=== PATIENT | female | born 1960 | race Caucasian/White ===

== ENCOUNTER 2017-11-16 18:08 | Inpatient (IN) | payer OTHER ==
[~2017-11-16] VITALS: Ht 162.6 cm; Wt 116.6 kg
[2017-11-16] MEDS ORDERED: ENALAPRIL (18:17)
[2017-11-16] MEDS ORDERED: NEURONTIN PO (18:17)
--- NOTE | 2017-11-16 18:57 | NUR ---
Patient went to the bathroom
--- NOTE | 2017-11-16 19:00 | NUR ---
at bedside for MSE.
--- NOTE | 2017-11-16 19:05 | NUR ---
Passed report to [facility] NICOLA Solis. I relinquish care of my patient.
--- NOTE | 2017-11-16 19:07 | NUR ---
Report taken from day shift RN. Assuming PT care at this time
[2017-11-16] MEDS ORDERED: ALBUTEROL SULFATE 2.5 MG/3 ML NEBU NEB ONE (19:15)
[2017-11-16] MEDS ORDERED: ALBUTEROL SULFATE 2.5 MG/3 ML NEBU ONE (19:26)
[2017-11-16] MEDS ORDERED: methylPREDNISolone SOD SUCC 125 MG/2 ML VIAL IV ONE (19:30)
--- NOTE | 2017-11-16 19:40 | NUR ---
at bedside for MSE.
[2017-11-16] MEDS ORDERED: methylPREDNISolone SOD SUCC 125 MG/2 ML VIAL ONE (19:55)
--- NOTE | 2017-11-16 20:00 | NUR ---
RT at bedside for breathing treatment.
[2017-11-16 20:04] LABS: CREATININE 0.8 mg/dL (0.6-1.3); POTASSIUM 4.1 mmol/L (3.5-5.1)
[2017-11-16 20:11] LABS: BASOPHILS # (AUTO) 0.1 K/uL (0.0-8.0); BASOPHILS % (AUTO) 0.8 % (0.0-2.0); EOSINOPHILS # (AUTO) 0.6 K/uL (0.0-0.7); EOSINOPHILS % (AUTO) 5.5 % (0.0-7.0); HEMOGLOBIN 14.1 g/dL (10.9-14.3); LYMPHOCYTES # (AUTO) 2.1 K/uL (20.0-40.0); LYMPHOCYTES % (AUTO) 18.6 % (20.5-51.5); MEAN CORPUSCULAR HEMOGLOBIN 29.4 uug (24.7-32.8); MEAN CORPUSCULAR HGB CONC 33 g/dL (32.3-35.6); MEAN CORPUSCULAR VOLUME 89.8 fL (75.5-95.3); MONOCYTES # (AUTO) 0.8 K/uL (2.0-10.0); MONOCYTES % (AUTO) 7.2 % (0.0-11.0); NEUTROPHILS # (AUTO) 7.5 K/uL (1.8-8.9); NEUTROPHILS % (AUTO) 67.9 % (38.5-71.5); PLATELET COUNT (AUTO) 341 K/uL (179-408); RED BLOOD CELL COUNT(AUTO) 4.79 MIL/uL (3.63-4.92); WHITE BLOOD COUNT (AUTO) 11.1 K/uL (3.8-11.8)
[2017-11-16 20:16] LABS: BILIRUBIN,DIRECT 0.1 mg/dL (0.0-0.2); BILIRUBIN,TOTAL 0.6 mg/dL (0.2-1.0); TOTAL PROTEIN, SERUM 7.1 g/dL (6.4-8.2)
[2017-11-16] MEDS ORDERED: METOPROLOL TARTRATE 5 MG/5 ML VIAL IVP ONE ×6 (20:30→22:11)
[2017-11-16] MEDS ORDERED: ASPIRIN 325 MG TABLET PO ONE (20:30)
[2017-11-16] MEDS ORDERED: ASPIRIN 325 MG TABLET ONE (21:14)
[2017-11-16] MEDS ORDERED: PANTOPRAZOLE SODIUM IV 40 MG in IV DEXTROSE 5% 100 ML IV ONE (21:15)
[2017-11-16] MEDS ORDERED: PANTOPRAZOLE SODIUM 40 MG VIAL ONE (21:46)
--- NOTE | 2017-11-16 23:00 | NUR ---
Pt resting in a position of comfort. No distress noted at this time.
[2017-11-16 23:15] VITALS: BP 155/96
--- NOTE | 2017-11-16 23:15 | NUR ---
NURSING CLINICAL NOTE: Received pt from ED with a Dx of SOB. Hx of Asthma and HTN. connected to the registered nurse hh case manager shows Sinus tachycardia. MD. Gonsales is aware. pt is A&O X 4. on 3 L NC sating well. denies pain or distress at this time. Fall precautions are implemented as indicated. Will continue to monitor for any changes on the patient condition.
[2017-11-16] MEDS ORDERED: IV NORMAL SALINE 250 ML IV ONE (23:37)
[2017-11-16] MEDS ORDERED: NORMAL SALINE FLUSH 10 ML DISP.SYRIN ONE (23:37)
[2017-11-16] MEDS ORDERED: IOHEXOL 350 100 ML INFUS..BTL ONE (23:37)
[2017-11-17] VITALS: BP 155/96
[2017-11-17] MEDS ORDERED: LEVALBUTEROL HCL NEB 0.63 MG/3 ML NEBU NEB PRN
[2017-11-17] MEDS ORDERED: ONDANSETRON 4 MG/2 ML VIAL IV PRN
[2017-11-17] MEDS ORDERED: MORPHINE SULFATE 2 MG/1 ML DISP.SYRIN IV PRN
[2017-11-17] MEDS ORDERED: IPRATROPIUM BROMIDE 0.5 MG/2.5 ML NEBU NEB PRN
[2017-11-17] MEDS ORDERED: LEVOFLOXACIN 750MG/D5W 750 MG in PREMIXED 1 EACH IV SCH ×2
--- NOTE | 2017-11-17 | NUR ---
Pt. admitted to tele, under care of Dr. Choi Belongs List completed
[2017-11-17] MEDS ORDERED: FUROSEMIDE 20 MG/2 ML VIAL ONE (00:30)
[2017-11-17] MEDS ORDERED: LEVOFLOXACIN 750MG/D5W 150 ML IV ONE (00:30)
[2017-11-17] MEDS ORDERED: DILTIAZEM HCL 60 MG TABLET ONE ×2 (00:31→06:17)
[2017-11-17] MEDS: DILTIAZEM HCL 60 MG TABLET PO SCH ×4 (00:44→21:51)
[2017-11-17] MEDS: FUROSEMIDE 20 MG/2 ML VIAL IV SCH ×3 (00:44→21:50)
--- NOTE | 2017-11-17 02:19 | NUR ---
NURSING CLINICAL NOTE: Pt is tachycardic on the monitor, still sustained HR of 141 b/min. pt is asymptomatic, denies pain or acute distress. Ethel is paged, will cont to monitor.
--- NOTE | 2017-11-17 02:55 | NUR ---
NURSING CLINICAL NOTE: Ethel made aware of the patient's condition and ordered Stat EKG. will carry out the orders and cont to monitor patient's condition.
[2017-11-17] MEDS ORDERED: MORPHINE SULFATE 2 MG/1 ML DISP.SYRIN ONE (03:06)
[2017-11-17 04:00] VITALS: BP 136/65
[2017-11-17] MEDS ORDERED: DILTIAZEM HCL 25 MG IV IV ONE ×2 (04:00→10:15)
[2017-11-17] MEDS ORDERED: DILTIAZEM HCL 25 MG IV ONE (04:09)
--- NOTE | 2017-11-17 04:11 | NUR ---
NURSING CLINICAL NOTE: Ethel ordered 10 mg cardizem IVP. order is performed. will cont to monitor.
--- NOTE | 2017-11-17 05:20 | NUR ---
NURSING CLINICAL NOTE: Pt still having a HR above 140's, pt is asymptomatic BP: 136/65 mmHg. No distress noted. Ethel is paged again. will continue to monitor.
[2017-11-17 06:06] LABS: ABG HCO3 32.9 mmol/L; ABG PCO2 51.7 mmHg (35.0-45.0); ABG PH 7.422 (7.350-7.450); ABG PO2 85.4 mmHg (75.0-100.0); ABG SITE RIGHT BRACHIAL; ABG TOTAL HEMOGLOBIN 14.1 G/dL (12.0-16.0); COHb 1.4 % (0.5-1.5); MetHb 0.3 % (0.0-1.5); VENT MODE Nasal Cannula
[2017-11-17] MEDS: methylPREDNISolone SOD SUCC 125 MG/2 ML VIAL IV SCH ×3 (06:13→21:49)
[2017-11-17] MEDS ORDERED: methylPREDNISolone SOD SUCC 125 MG/2 ML VIAL ONE (06:18)
[2017-11-17] MEDS ORDERED: DIGOXIN 500 MCG/2 ML AMP IV ONE ×2 (06:30→06:45)
[2017-11-17] MEDS ORDERED: DIGOXIN 500 MCG/2 ML AMP ONE (06:38)
--- NOTE | 2017-11-17 06:54 | NUR ---
NURSING CLINICAL NOTE: Ethel ordered 250 mcg of digoxin IVP. order is performed. will cont to monitor and endorse patient and POC to the next nurse to continue the care. Charge nurse made aware of patient's condition.
--- NOTE | 2017-11-17 08:00 | NUR ---
awake alert and oriented, denies of chest pain, has occasional cough non productive, on 3l/nc. tele ST 140, asymptomatic, states doesn't feel her heart rate is up, expalined plan of care- verbalized understanding, call light within reach
[2017-11-17] MEDS ORDERED: FLUTICASONE/SALMETEROL 250/50 INHALER INH SCH (09:00)
[2017-11-17] MEDS ORDERED: ASPIRIN EC 325 MG TABLET.DR PO SCH (09:00)
[2017-11-17] MEDS: PANTOPRAZOLE SODIUM 40 MG TABLET.DR PO SCH (09:05)
[2017-11-17] MEDS: FLUTICASONE/VILANTEROL 1 EACH BLST.W.DEV INH SCH (09:06)
--- NOTE | 2017-11-17 09:50 | NUR ---
rhythm a flutter 2:1 at 140's, ordered stat EKG and showed atrial flutter- BP- 123/72 Dr Choi informed, ordered to call veneer stacker, called Dr Del Rio and orders given to give bolus of Cardizem 10mg iv followed by Cardizem drip at 5mg/hr
[2017-11-17 10:38] LABS: EOSINOPHILS % (AUTO) 0.1 % (0.0-7.0); HEMATOCRIT 45.2 % (31.2-41.9); HEMOGLOBIN 15.1 g/dL (10.9-14.3); LYMPHOCYTES # (AUTO) 0.4 K/uL (20.0-40.0); LYMPHOCYTES % (AUTO) 3.6 % (20.5-51.5); MEAN CORPUSCULAR HGB CONC 33 g/dL (32.3-35.6); MEAN CORPUSCULAR VOLUME 89.9 fL (75.5-95.3); MONOCYTES # (AUTO) 0.1 K/uL (2.0-10.0); MONOCYTES % (AUTO) 1.3 % (0.0-11.0); NEUTROPHILS # (AUTO) 10.7 K/uL (1.8-8.9); PLATELET COUNT (AUTO) 345 K/uL (179-408); RED BLOOD CELL COUNT(AUTO) 5.03 MIL/uL (3.63-4.92); WHITE BLOOD COUNT (AUTO) 11.3 K/uL (3.8-11.8)
[2017-11-17 10:59] LABS: BILIRUBIN,TOTAL 0.9 mg/dL (0.2-1.0); MAGNESIUM 1.7 mg/dL (1.8-2.4); PHOSPHOROUS 4.4 mg/dL (2.5-4.9); POTASSIUM 4.9 mmol/L (3.5-5.1); TOTAL PROTEIN, SERUM 7.5 g/dL (6.4-8.2)
[2017-11-17] MEDS ORDERED: DILTIAZEM HCL IV 125 MG in IV DEXTROSE 5% 100 ML IV PRN (11:30)
[2017-11-17 11:46] VITALS: BP 131/65
--- NOTE | 2017-11-17 12:00 | NUR ---
appetite good, voiding qs, still on a flutter with rapid rate but asymptomatic, continue to monitor closely, Cardizem drip at 5mg/hr
[2017-11-17] MEDS: ACETAMINOPHEN 325 MG TABLET PO PRN ×2 (15:00→21:51)
[2017-11-17 15:30] VITALS: BP 129/82
--- NOTE | 2017-11-17 16:30 | NUR ---
Dr Del Rio here- informed of no change in rhythm and rate width Cardizem ahsan, pt asymptomatic- states will see pt
--- NOTE | 2017-11-17 17:00 | NUR ---
midline nurse here and inserted midline on the right upper arm
--- NOTE | 2017-11-17 18:27 | NUR ---
remains on aflutter 2:1 at rate 0f 140's, asymptomatic, all needs attended and met, call light dixon reach
[2017-11-17 20:40] VITALS: BP 138/52
[2017-11-17] MEDS: LEVOFLOXACIN 750MG/D5W 750 MG in PREMIXED 1 EACH IV SCH (21:50)
[2017-11-17] MEDS: TEMAZEPAM 15 MG CAPSULE PO PRN (21:55)
[2017-11-17] MEDS: ENOXAPARIN SODIUM 60 MG/0.6 ML DISP.SYRIN SQ SCH (21:56)
[2017-11-18] VITALS (14 sets, daily range): BP systolic 114–191; BP diastolic 53–132
[2017-11-18] MEDS: ACETAMINOPHEN 325 MG TABLET PO PRN ×2 (03:12→13:16)
--- NOTE | 2017-11-18 03:35 | NUR ---
Notified NEY Yee heart rate remains rapid. Discussed Cardizem gtt, rapid HR x 48 hrs, CHF, IV challenge, Lasix. No new orders at this time.
--- NOTE | 2017-11-18 05:45 | NUR ---
Notified Dr APARICIO concerning: B/P & HR. Noted new orders.
[2017-11-18] MEDS ORDERED: DILTIAZEM HCL 25 MG IV IV ONE (06:00)
[2017-11-18] MEDS ORDERED: DILTIAZEM HCL IV 125 MG in IV DEXTROSE 5% 100 ML IV PRN (06:00)
[2017-11-18] MEDS ORDERED: DILTIAZEM HCL 25 MG IV ONE (06:11)
[2017-11-18] MEDS: DILTIAZEM HCL 60 MG TABLET PO SCH ×4 (06:23→23:30)
[2017-11-18] MEDS: PANTOPRAZOLE SODIUM 40 MG TABLET.DR PO SCH (06:23)
[2017-11-18] MEDS: methylPREDNISolone SOD SUCC 125 MG/2 ML VIAL IV SCH ×3 (06:23→21:03)
[2017-11-18 06:45] LABS: BASOPHILS % (AUTO) 0.1 % (0.0-2.0); HEMATOCRIT 44.1 % (31.2-41.9); HEMOGLOBIN 14.8 g/dL (10.9-14.3); LYMPHOCYTES # (AUTO) 0.6 K/uL (20.0-40.0); LYMPHOCYTES % (AUTO) 3.7 % (20.5-51.5); MEAN CORPUSCULAR HEMOGLOBIN 29.9 uug (24.7-32.8); MEAN CORPUSCULAR HGB CONC 34 g/dL (32.3-35.6); MEAN CORPUSCULAR VOLUME 89.4 fL (75.5-95.3); MONOCYTES # (AUTO) 0.5 K/uL (2.0-10.0); MONOCYTES % (AUTO) 2.9 % (0.0-11.0); NEUTROPHILS # (AUTO) 16.3 K/uL (1.8-8.9); NEUTROPHILS % (AUTO) 93.3 % (38.5-71.5); PLATELET COUNT (AUTO) 418 K/uL (179-408); RED BLOOD CELL COUNT(AUTO) 4.93 MIL/uL (3.63-4.92); WHITE BLOOD COUNT (AUTO) 17.5 K/uL (3.8-11.8)
[2017-11-18 07:10] LABS: BILIRUBIN,TOTAL 0.7 mg/dL (0.2-1.0); CREATININE 0.9 mg/dL (0.6-1.3); MAGNESIUM 1.9 mg/dL (1.8-2.4); PHOSPHOROUS 2.8 mg/dL (2.5-4.9); POTASSIUM 3.9 mmol/L (3.5-5.1); TOTAL PROTEIN, SERUM 7.2 g/dL (6.4-8.2)
[2017-11-18] MEDS: FUROSEMIDE 20 MG/2 ML VIAL IV SCH ×2 (08:06→21:03)
[2017-11-18] MEDS: MORPHINE SULFATE 4 MG/1 ML DISP.SYRIN IV PRN ×3 (08:07→19:44)
[2017-11-18] MEDS: FLUTICASONE/VILANTEROL 1 EACH BLST.W.DEV INH SCH (08:10)
[2017-11-18] MEDS: DILTIAZEM HCL IV 125 MG in IV DEXTROSE 5% 100 ML IV PRN ×2 (09:24→18:56)
[2017-11-18] MEDS ORDERED: DEXTROSE 50% 50 ML DISP.SYRIN IV PRN (12:00)
[2017-11-18] MEDS ORDERED: INSULIN REGULAR, HUMAN 300 UNITS/3 ML VIAL SQ PRN (12:00)
[2017-11-18] MEDS: ENOXAPARIN SODIUM 60 MG/0.6 ML DISP.SYRIN SQ SCH ×2 (12:38→21:07)
[2017-11-18] MEDS: BLOOD SUGAR DIAGNOSTIC 1 EACH STRIP VI SCH ×3 (12:47→21:10)
[2017-11-18] MEDS: INSULIN REGULAR, HUMAN 300 UNIT/3 ML VIAL SQ PRN ×2 (12:49→17:35)
--- NOTE | 2017-11-18 14:00 | NUR ---
report received from Rita PETERSEN. Patient 57 yo female on cardizem dripat 10mg/hr via tammy mid line. hr remains 150-150/min 2:1 guido . faizan birch intact. with bloody urine. Addendum: 11/18/17 at 1439 by JIA MARIA RN Amended: Links added.
--- NOTE | 2017-11-18 14:18 | NUR ---
Transferred pt to CCU due to continous HR above 150's even with cardizem drip @10cc/hr per DR cisneros's orders. Cardizem drip non effective. Pt remains asymptomatic even with 2:1 flutters and fast HR. SBP elevated above 160's and gave cardizem PO as ordered. Report Given to CCU nurse.
--- NOTE | 2017-11-18 15:12 | NUR ---
talked to dr roma wetzel increased HR and incresed BP. orders received Addendum: 11/18/17 at 1512 by JIA MARIA RN Amended: Links added.
[2017-11-18] MEDS ORDERED: METOPROLOL TARTRATE 50 MG TABLET PO SCH (16:00)
[2017-11-18] MEDS: CLONIDINE HCL 0.1 MG TABLET PO PRN (16:09)
--- NOTE | 2017-11-18 16:11 | NUR ---
medicated for hypertension 191/135 Addendum: 11/18/17 at 1611 by JIA MARIA RN Amended: Links added.
[2017-11-18] MEDS ORDERED: DIGOXIN 250 MCG TABLET PO ONE ×2 (17:00→23:00)
[2017-11-18] MEDS: METOPROLOL TARTRATE 50 MG TABLET PO SCH ×2 (17:38→23:30)
--- NOTE | 2017-11-18 19:25 | NUR ---
The following medications overrided and removed from Pyxis. See eMAR for administration. 11/17 29 Lasix 20 mg IV 11/17 29 Levaquin 750/ D5W 150mL 11/17 29 Cardizem 60 mg tablet 11/17 305 Morphine 2 mg IV 11/17 616 Cardizem 60 mg tablet 11/17 617 Solu-Medrol 125 mg
--- NOTE | 2017-11-18 20:30 | NUR ---
Notified Dr. Carrasco regarding a-fib with bradycardia, HR as low as 45-60 on Cardizem drip alongside beta-ray PO and Cardizem PO regimen. MD order to d/c IV Cardizem and continue PO meds.
[2017-11-18] MEDS: ATORVASTATIN 40 MG TABLET PO SCH (21:03)
[2017-11-18] MEDS: LEVOFLOXACIN 750MG/D5W 750 MG in PREMIXED 1 EACH IV SCH (21:06)
[2017-11-19] VITALS (23 sets, daily range): BP systolic 111–168; BP diastolic 37–103
[2017-11-19] MEDS: CLONIDINE HCL 0.1 MG TABLET PO PRN ×2 (00:44→10:40)
--- NOTE | 2017-11-19 01:40 | NUR ---
Cardiac rhythm converted to NSR
[2017-11-19 05:11] LABS: BILIRUBIN,TOTAL 0.6 mg/dL (0.2-1.0); CREATININE 1.1 mg/dL (0.6-1.3); MAGNESIUM 1.9 mg/dL (1.8-2.4); POTASSIUM 4.7 mmol/L (3.5-5.1); TOTAL PROTEIN, SERUM 6.4 g/dL (6.4-8.2)
[2017-11-19 05:16] LABS: *CLARITY,URINE CLOUDY (CLEAR)
[2017-11-19 05:17] LABS: *COLOR,URINE RED (YELLOW); UGLUCOSE NEGATIVE (NEGATIVE)
[2017-11-19 05:18] LABS: *BILIRUBIN,URIN NEGATIVE (NEGATIVE); *BLOOD, URINE 3+ (NEGATIVE); *KETONES,URINE NEGATIVE (NEGATIVE); *PROTEIN,URINE 2+ (NEGATIVE); *UROBILINOGEN,URINE 0.2 E.U./dl (NORMAL); LEUKOCYTE ESTERASE ,URINE 1+ (NEGATIVE); NITRITE, URINE NEGATIVE (NEGATIVE)
[2017-11-19 05:20] LABS: BACTERIA,URINE NONE SEEN /HPF (NONE SEEN); RBC,URINE TNTC /HPF (0-3); SQUAMOUS EPITHELIAL CELL,UR FEW /HPF (NONE SEEN)
[2017-11-19 05:44] LABS: BASOPHILS % (AUTO) 0.1 % (0.0-2.0); HEMATOCRIT 43.2 % (31.2-41.9); HEMOGLOBIN 14.2 g/dL (10.9-14.3); LYMPHOCYTES # (AUTO) 0.7 K/uL (20.0-40.0); LYMPHOCYTES % (AUTO) 3.9 % (20.5-51.5); MEAN CORPUSCULAR HEMOGLOBIN 29.8 uug (24.7-32.8); MEAN CORPUSCULAR HGB CONC 33 g/dL (32.3-35.6); MEAN CORPUSCULAR VOLUME 90.8 fL (75.5-95.3); NEUTROPHILS # (AUTO) 15.3 K/uL (1.8-8.9); PLATELET COUNT (AUTO) 424 K/uL (179-408); RED BLOOD CELL COUNT(AUTO) 4.77 MIL/uL (3.63-4.92)
[2017-11-19] MEDS ORDERED: DIGOXIN 250 MCG TABLET PO ONE (06:00)
[2017-11-19] MEDS: PANTOPRAZOLE SODIUM 40 MG TABLET.DR PO SCH (06:01)
[2017-11-19] MEDS: METOPROLOL TARTRATE 50 MG TABLET PO SCH ×3 (06:01→20:57)
[2017-11-19] MEDS: DILTIAZEM HCL 60 MG TABLET PO SCH ×2 (06:01→12:33)
[2017-11-19] MEDS: methylPREDNISolone SOD SUCC 125 MG/2 ML VIAL IV SCH ×3 (06:02→21:52)
[2017-11-19] MEDS: BLOOD SUGAR DIAGNOSTIC 1 EACH STRIP VI SCH ×4 (06:47→20:59)
[2017-11-19] MEDS: FUROSEMIDE 20 MG/2 ML VIAL IV SCH (08:40)
[2017-11-19] MEDS: FLUTICASONE/VILANTEROL 1 EACH BLST.W.DEV INH SCH (08:40)
[2017-11-19] MEDS: ENOXAPARIN SODIUM 60 MG/0.6 ML DISP.SYRIN SQ SCH (08:41)
[2017-11-19] MEDS ORDERED: ALBUTEROL SULFATE 1.25 MG/3 ML NEBU NEB PRN (10:15)
[2017-11-19] MEDS: INSULIN REGULAR, HUMAN 300 UNIT/3 ML VIAL SQ PRN ×3 (12:35→21:01)
[2017-11-19] MEDS: DILTIAZEM HCL CD 240 MG CAP.SR.24H PO SCH (17:24)
--- NOTE | 2017-11-19 20:00 | NUR ---
RECEIVED PT. AWAKE, ALERT & ORIENTED X3. DENIES PAIN THIS TIME. MIDLINE INTACT ON KENYA. C-SCOPE SR. BP STABLE. NOT IN ANY DISTRESS.
[2017-11-19] MEDS: LEVOFLOXACIN 750MG/D5W 750 MG in PREMIXED 1 EACH IV SCH (20:36)
[2017-11-19] MEDS: ATORVASTATIN 40 MG TABLET PO SCH (20:57)
[2017-11-19] MEDS: RIVAROXABAN 10 MG TABLET PO SCH (20:58)
[2017-11-19] MEDS: TEMAZEPAM 15 MG CAPSULE PO PRN (21:14)
--- NOTE | 2017-11-19 21:15 | NUR ---
REQUESTED A SLEEPING PILL, RESTORIL 7.5MG GIVEN PO.
[2017-11-19] MEDS ORDERED: CEFTRIAXONE 1 G in IV DEXTROSE 5% 50 ML IV SCH (21:45)
[2017-11-19] MEDS: HYDROCODONE/APAP 5-325MG TABLET PO PRN (22:40)
[2017-11-19] MEDS ORDERED: CEFTRIAXONE 1 G VIAL ONE (22:49)
[2017-11-20] VITALS (19 sets, daily range): BP systolic 131–187; BP diastolic 74–117
[2017-11-20] MEDS: MORPHINE SULFATE 4 MG/1 ML DISP.SYRIN IV PRN (00:04)
--- NOTE | 2017-11-20 00:05 | NUR ---
MEDICATED W/ MORPHINE 2MG IVP FOR BACK PAIN SCALE 8/10. BP STABLE. O2 SAT ADEQ.
[2017-11-20] MEDS: CLONIDINE HCL 0.1 MG TABLET PO PRN ×2 (01:27→11:30)
--- NOTE | 2017-11-20 01:27 | NUR ---
bp- 182/95, clonidine 0.1mg given po.
--- NOTE | 2017-11-20 02:00 | NUR ---
sleeping @ this time, bp-145/79.
--- NOTE | 2017-11-20 04:00 | NUR ---
refused am care. wants to sleep.
[2017-11-20 05:07] LABS: MAGNESIUM 2.1 mg/dL (1.8-2.4); PHOSPHOROUS 3.4 mg/dL (2.5-4.9); POTASSIUM 4.9 mmol/L (3.5-5.1)
[2017-11-20 05:22] LABS: BASOPHILS % (AUTO) 0.3 % (0.0-2.0); HEMATOCRIT 43.3 % (31.2-41.9); HEMOGLOBIN 14.3 g/dL (10.9-14.3); LYMPHOCYTES # (AUTO) 0.5 K/uL (20.0-40.0); LYMPHOCYTES % (AUTO) 4.8 % (20.5-51.5); MEAN CORPUSCULAR HEMOGLOBIN 29.6 uug (24.7-32.8); MEAN CORPUSCULAR HGB CONC 33 g/dL (32.3-35.6); MEAN CORPUSCULAR VOLUME 89.5 fL (75.5-95.3); MONOCYTES # (AUTO) 0.3 K/uL (2.0-10.0); MONOCYTES % (AUTO) 2.7 % (0.0-11.0); NEUTROPHILS # (AUTO) 9.9 K/uL (1.8-8.9); NEUTROPHILS % (AUTO) 92.2 % (38.5-71.5); PLATELET COUNT (AUTO) 359 K/uL (179-408); RED BLOOD CELL COUNT(AUTO) 4.84 MIL/uL (3.63-4.92); WHITE BLOOD COUNT (AUTO) 10.8 K/uL (3.8-11.8)
[2017-11-20] MEDS ORDERED: methylPREDNISolone SOD SUCC 40 MG/ML VIAL ONE (05:49)
[2017-11-20] MEDS: PANTOPRAZOLE SODIUM 40 MG TABLET.DR PO SCH (06:03)
[2017-11-20] MEDS: methylPREDNISolone SOD SUCC 125 MG/2 ML VIAL IV SCH ×3 (06:05→21:25)
[2017-11-20] MEDS: BLOOD SUGAR DIAGNOSTIC 1 EACH STRIP VI SCH ×4 (07:53→20:27)
[2017-11-20] MEDS: FLUTICASONE/VILANTEROL 1 EACH BLST.W.DEV INH SCH (08:00)
[2017-11-20] MEDS: INSULIN REGULAR, HUMAN 300 UNIT/3 ML VIAL SQ PRN ×4 (08:00→20:29)
[2017-11-20] MEDS: DILTIAZEM HCL CD 240 MG CAP.SR.24H PO SCH (08:01)
[2017-11-20] MEDS: METFORMIN HCL 500 MG TABLET PO SCH ×2 (08:02→17:01)
[2017-11-20] MEDS: METOPROLOL TARTRATE 50 MG TABLET PO SCH ×2 (08:02→20:22)
[2017-11-20] MEDS: HYDROCODONE/APAP 5-325MG TABLET PO PRN ×2 (12:47→21:25)
[2017-11-20] MEDS: RIVAROXABAN 10 MG TABLET PO SCH (17:02)
--- NOTE | 2017-11-20 17:15 | NUR ---
Dr. Gonsales in the unit and orders to down-grade patient to telemetry status received. Orders carried as order.
--- NOTE | 2017-11-20 20:00 | NUR ---
RECEIVED PT. AWAKE, ALERT & ORIENTED X3. DENIES PAIN THIS TIME. MIDLINE ON KENYA INTACT & PATENT.C-SCOPE SR. BP STABLE. NOT IN ANY DISTRESS.
[2017-11-20] MEDS: LEVOFLOXACIN 750MG/D5W 750 MG in PREMIXED 1 EACH IV SCH (20:22)
[2017-11-20] MEDS: ATORVASTATIN 40 MG TABLET PO SCH (20:22)
--- NOTE | 2017-11-20 20:50 | NUR ---
REPORT GIVEN TO RICO PETERSEN FOR CONTINUITY OF CARE. TRANSFERED PT. TO [id number] VIA W/C.
[2017-11-20] MEDS ORDERED: CEFTRIAXONE 1 G in IV DEXTROSE 5% 50 ML IV SCH (21:00)
--- NOTE | 2017-11-20 21:30 | NUR ---
Transferred from CCU via wheel chair, awake alert & oriented no SOB denies chest pain w/ stable vital signs. Tele shows NSR 70s. Roque catheter in place, draining pinkish color. Complaining of lower back discomfort, [place] 1 tab po given. Right upper arm midline intact, no signs of infiltration. Night snacks provided per patient request. Will continue to monitor.
[2017-11-20] MEDS: ACETAMINOPHEN 325 MG TABLET PO PRN (22:57)
[2017-11-20] MEDS: TEMAZEPAM 15 MG CAPSULE PO PRN (22:58)
[2017-11-21] VITALS: BP 156/86
--- NOTE | 2017-11-21 01:43 | NUR ---
Asleep, sinus rhythm on the monitor.
[2017-11-21 04:00] VITALS: BP 166/88
[2017-11-21] MEDS: BLOOD SUGAR DIAGNOSTIC 1 EACH STRIP VI SCH ×2 (05:05→11:30)
[2017-11-21] MEDS: PANTOPRAZOLE SODIUM 40 MG TABLET.DR PO SCH (05:07)
[2017-11-21] MEDS: methylPREDNISolone SOD SUCC 125 MG/2 ML VIAL IV SCH (05:07)
[2017-11-21 07:49] VITALS: BP 174/84
[2017-11-21] MEDS: METFORMIN HCL 500 MG TABLET PO SCH (07:55)
[2017-11-21] MEDS: METOPROLOL TARTRATE 50 MG TABLET PO SCH (07:57)
[2017-11-21] MEDS: FLUTICASONE/VILANTEROL 1 EACH BLST.W.DEV INH SCH (07:58)
[2017-11-21] MEDS: DILTIAZEM HCL CD 240 MG CAP.SR.24H PO SCH (07:58)
[2017-11-21] MEDS: INSULIN REGULAR, HUMAN 300 UNIT/3 ML VIAL SQ PRN ×2 (08:03→11:44)
[2017-11-21 11:05] VITALS: BP 162/80
[2017-11-21] MEDS: CLONIDINE HCL 0.1 MG TABLET PO PRN (11:45)
[2017-11-21] MEDS: MORPHINE SULFATE 4 MG/1 ML DISP.SYRIN IV PRN (11:52)
[2017-11-21] MEDS ORDERED: VALSARTAN 160 MG TABLET PO SCH (12:30)
[2017-11-21 13:12] VITALS: BP 155/70
[2017-11-21] MEDS ORDERED: methylPREDNISolone SOD SUCC 125 MG/2 ML VIAL IV SCH (14:00)
[2017-11-21] MEDS ORDERED: METH4TAB3 PO (14:41)
[2017-11-21] MEDS ORDERED: METF500T4 PO (14:41)
[2017-11-21] MEDS ORDERED: ATOR40TA PO (14:41)
[2017-11-21] MEDS ORDERED: RIVA10TA PO (14:41)
[2017-11-21] MEDS ORDERED: LEVO500T2 PO (14:41)
[2017-11-21] MEDS ORDERED: METO50TA16 PO (14:41)
[2017-11-21] MEDS ORDERED: DILT240C64 PO (14:41)
[2017-11-21] MEDS ORDERED: VALS160T2 PO (14:41)
[2017-11-21] MEDS ORDERED: FURO-152 PO (14:42)
[2017-11-21 15:10] VITALS: BP 158/76
--- NOTE | 2017-11-21 16:45 | NUR ---
Patient discharged to home, accompanied by daughter and son. Patient left the unit via wheelchair, assisted by LAY OUT FORMER. Patient is alert, in no distress. According to patient, gloria cath removed by another nurse, patient tolerated procedure well. Midline removed, ID band removed, belonging list done, discharged papers signed by patient, copy provided, copy of prescription provided. Discharged teachings done to patient, patient verbalized understanding.
== END 2017-11-21 16:20 | disposition home or self-care (01) | DRG 140 ==
LOC: ER 18:10 → TELE 22:08 → TELE-TD 11-17 10:20 → CCU 11-18 14:00 → TELE 11-20 21:15
PROVIDERS: ADMIT Internal Medicine; ATTEND Internal Medicine
PROC: 05H533Z Insertion of Infusion Device into Right Subclavian Vein, Percutaneous Approach (ICD-10-PCS; principal; 2017-11-17)
DX: J44.0 Chronic obstructive pulmonary disease with (acute) lower respiratory infection (principal); I21.A1 Myocardial infarction type 2; I50.33 Acute on chronic diastolic (congestive) heart failure; J18.9 Pneumonia, unspecified organism; D68.59 Other primary thrombophilia; E11.65 Type 2 diabetes mellitus with hyperglycemia; I11.0 Hypertensive heart disease with heart failure; J45.901 Unspecified asthma with (acute) exacerbation; I48.92 Unspecified atrial flutter; Z68.41 Body mass index [BMI] 40.0-44.9, adult; E66.01 Morbid (severe) obesity due to excess calories; J44.1 Chronic obstructive pulmonary disease with (acute) exacerbation; J20.9 Acute bronchitis, unspecified; B96.89 Other specified bacterial agents as the cause of diseases classified elsewhere; Z87.891 Personal history of nicotine dependence; T38.0X5A Adverse effect of glucocorticoids and synthetic analogues, initial encounter; Y92.89 Other specified places as the place of occurrence of the external cause; J98.11 Atelectasis; E78.5 Hyperlipidemia, unspecified; E03.9 Hypothyroidism, unspecified; I48.91 Unspecified atrial fibrillation
CPT/HCPCS: 36415; 36600; 70030-TC; 71045; 71275; 83735; 84100; 84443; 85025; 85730; 87086; 87400; 93005; 93307; A4663; C9113; J0696; J1160; J1650; J1815; J1940; J1956; J2270; J2405; J2920; J2930; J3490; J7050; J7060; J7614; Q9967